=== PATIENT | female | born 1985 | race Caucasian/White ===

== ENCOUNTER 2016-06-17 05:04 | Emergency (ER) | payer OTHER ==
[~2016-06-17] VITALS: Ht 170.2 cm; Wt 52.9 kg
[2016-06-17] MEDS ORDERED: TYLENOL WITH C1 EACH PO (08:03)
[2016-06-17] MEDS ORDERED: FLEXERIL10 MG PO ×2 (08:03→08:05)
[2016-06-17 08:28] VITALS: BP 116/63
== END 2016-06-17 08:29 | disposition home or self-care (01) ==
LOC: EME 05:04
DX: M25.512 Pain in left shoulder (principal); M54.2 Cervicalgia
CPT/HCPCS: 71020; 72040; 99281; 99284; J1885; J7030